=== PATIENT | female | born 1990 | race African-American/Black ===

== ENCOUNTER 2019-06-28 13:00 | Inpatient (IN) | payer OTHER ==
[2019-07-04] MEDS ORDERED: CITRIC ACID/SODIUM CITRATE 30 ML UNIT-DOSE CUP PO ONE (06:30)
[2019-07-04] MEDS ORDERED: ELECTROLYTE-148 SOLN 500 ML IV ONE (06:30)
[2019-07-04] MEDS ORDERED: ELECTROLYTE-148 SOLN 1,000 ML IV SCH (07:00)
[2019-07-04 07:04] VITALS: BMI 29.2
[2019-07-04] MEDS ORDERED: ONDANSETRON 4 MG/2 ML VIAL IVPUSH PRN (07:25)
[2019-07-04] MEDS ORDERED: morphine SULFATE/PF 0.5 MG/ML (2cc Syringe - QUVA) ONE (07:44)
[2019-07-04] MEDS ORDERED: ePHEDrine SULFATE 50 MG/1 ML AMPULE ONE (07:44)
[2019-07-04] MEDS ORDERED: PROPOFOL 20 ML ONE (07:44)
[2019-07-04] MEDS ORDERED: OXYTOCIN 20 UNITS in 0.9% NS 40 UNIT/2,000 ML INFUS.BAG IV ONE (07:52)
[2019-07-04] MEDS ORDERED: METHYLERGONOVINE MALEATE 0.2 MG/1 ML AMP IM PRN (09:30)
[2019-07-04] MEDS: OXYTOCIN 20 UNITS in 0.9% NS 20 UNIT/1,000 ML INFUS.BAG IV SCH (09:30)
--- NOTE | 2019-07-04 09:36 | HP ---
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: No: Alzheimer's, CVA, Dementia, Migraine, Multiple Sclerosis, Peripheral Neuropathy, Parkinson's, Seizure, Syncope, TIA, Vertigo, Other Cardiovascular: No: AFIB, Aneurysm, Aortic Insufficiency, Aortic Stenosis, CAD, CHF, Deep Vein Thrombosis, HTN, Hyperlipdemia, DC, Mitral Insufficiency, Mitral Stenosis, Murmur, Pulmonary Hypertension, Other Pulmonary: No: Asthma, Bronchitis, Cancer, COPD, O2 Dependent, Pneumonia, Previously Intubated, Pulmonary Embolus, Pulmonary Fibrosis, Sleep Apnea, Other Gastrointestinal: No: Ascites, Cancer, Constipation, Crohn's Disease, Diverticulitis, Diverticulosis, Esophageal Varices, Gastritis, GERD, GI Bleed, Hemorrhoids, Hiatal Hernia, Inflamatory Bowel Disease, Irritable Bowel Disease, Pancreatitis, Peptic Ulcer Disease, Ulcerative Colitis, Other Hepatobiliary: No: Cirrhosis, Cholelithiasis, Cholecystitis, Choledocholithiasis , Hepatitis A, Hepatitis B, Hepatitis C, Other Renal/: No: Renal Failure, Renal Inusuff, BPH, Cancer, Hematuria, Hemodialysis , Neurogenic Bladder, Renal Calculi, UTI, Other Reproductive: No: Ectopic , Endometriosis, Fibroids, PID, Polycystic Ovary Syndrome, Postmenopausal, Other ...: 4 ...Para: 1 ...Term: 1 ...: 0 ...Spon : 2 ...Induced : 0 ...Multiple Gestation: 0 ...LMP: 10/01/18 ...EDC by Sono: 07/09/19 Heme/Onc: No: Anemia, B12 Deficiency, Bleeding Disorder, Cancer, Current Chemotherapy, Current Radiation Therapy, Hemochromatosis, Hypercoaguable State, Myeloproliferative Synd, Sickle Cell Disease, Sickle Cell Trait, Thrombocytopenia, Other Infectious Disease: No: AIDS, C-Diff, Herpes Zoster, HIV, MRSA, STD's, Tuberculosis, VREF, Other Psych: No: Addictions, Anxiety, Bipolar, Depression, Panic, Psychosis, Schizophrenia, Other Musculoskeletal: No: Bursitis, Chronic low back pain, Hemiparesis, Hemiplegia, Osteoarthritis, Paraplegia, Other Rheumatology: No: Fibromyalgia, Gout, Lupus, Rheumatoid Arthritis, Sarcoidosis, Vasculitis, Other ENT: No: Allergic Rhinitis, Sinusitis, Other Endocrine: No: Bennington's Disease, Lima's Disease, Diabetes Insipidus, Diabetes Mellitus, Hyperparathyroidism, Hyperthyroidism, Hypothyroidism, Osteopenia, SIADH, Other Dermatology: No: Basal Cell, Cellulitis, Eczema, Melanoma, Psoriasis, Squamous Cell, Other - Past Surgical History Past Surgical History: Yes: Hx Myomectomy: No Hx Transabdominal Cerclage: No - Advance Directives Advance Directives: Yes: Living Will - Smoking History Smoking history: Never smoked Have you smoked in the past 12 months: No - Alcohol/Substance Use Hx Alcohol Use: No History of Substance Use: reports: None - Social History Usual Living Arrangement: Yes: With Significant Other Do you think of yourself as: Straight/Heterosexual ADL: Independent History of Recent Travel: No Home Medications - Allergies Allergies/Adverse Reactions: Allergies Allergy/AdvReac Type Severity Reaction Status Date / Time No Known Allergies Allergy Verified 07/04/19 06:41 - Home Medications Home Medications: Ambulatory Orders Mv-Mn/Iron/FA/Herbal/Digestive [ One Tablet] 1 each PO DAILY 07/04/19 Family Medical History Family History: Denies Review of Systems - Review of Systems Constitutional: reports: No Symptoms Eyes: reports: No Symptoms HENT: reports: No Symptoms Neck: reports: No Symptoms Cardiovascular: reports: No Symptoms Respiratory: reports: No Symptoms Gastrointestinal: reports: No Symptoms Genitourinary: reports: No Symptoms Breasts: reports: No Symptoms Reported Musculoskeletal: reports: No Symptoms Integumentary: reports: No Symptoms Neurological: reports: No Symptoms Endocrine: reports: No Symptoms Hematology/Lymphatic: reports: No Symptoms Psychiatric: reports: No Symptoms Physical Exam - Maternity Vital Signs: Vital Signs Temperature 98.0 F 07/04/19 06:59 Pulse Rate 82 07/04/19 06:59 Respiratory Rate 20 07/04/19 06:59 Blood Pressure 100/61 07/04/19 06:59 O2 Sat by Pulse Oximetry (%) Constitutional: Yes: Well Nourished, No Distress, Calm Eyes: Yes: WNL, Conjunctiva Clear, EOM Intact HENT: Yes: WNL, Atraumatic, Normocephalic Neck: Yes: WNL, Supple, Trachea Midline Cardiovascular: Yes: WNL, Regular Rate and Rhythm Lungs: Clear to auscultation Breast(s): Yes: WNL - Abdominal Exam/OB Fundal Height: 38 Number of Fetuses: Single Presentation: Vertex Contractions: Yes Regularity: Irregular Intensity: Mild Monitor Mode: External Heart Rate Location: [facility] Category: I Accelerations: Uniform Decelerations: None - Vaginal Exam/OB Vaginal Bleediing: No Speculum Exam: No Amniotic Membrane Status: Intact Presentation: Vertex/Position Station: -3 - Physical Exam Musculoskeletal: Yes: WNL Extremities: Yes: WNL Edema: Yes Edema: LUE: 1+, RUE: 1+, LLE: 1+, RLE: 1+ Integumentary: Yes: WNL Deep Tendon Reflex Grade: Normal +2 ...Motor Strength: WNL Psychiatric: Yes: WNL, Alert, Oriented Hemorrhage Risk Assessment - Risk Factors Medium Risk Factors: Yes: Prior , uterine surgery,or multiple laparotomies Risk Score: 1 Risk Level: Medium Risk Assessment/Plan for repeat lt c s
--- NOTE | 2019-07-04 09:38 | OP ---
Operative Note - Note: Operative Date: 07/04/19 Pre-Operative Diagnosis: repeat lt c s Operation: repeat lt c s Post-Operative Diagnosis: Same as Pre-op Surgeon: Benja Rodriguez Assembler Small Products: Sheldon Wheatley Anesthesiologist/FINE ARTIST: Spencer Smith Anesthesia: Spinal Estimated Blood Loss (mls): 500 (no complications ) Operative Report Dictated: Yes
[2019-07-04] MEDS: IBUPROFEN 800 MG/8 ML IJ IVPB PRN (15:00)
[2019-07-05] MEDS: OXYTOCIN 20 UNITS in 0.9% NS 20 UNIT/1,000 ML INFUS.BAG IV SCH (03:00)
[2019-07-05] MEDS: IBUPROFEN 800 MG/8 ML IJ IVPB PRN (04:45)
[2019-07-05 08:34] LABS: BASO % 0.1 % (0-2.0); EOS % 0.5 % (0-4.5); HEMATOCRIT 33.9 % (32.4-45.2); HEMOGLOBIN 11.1 GM/dL (10.7-15.3); LYMPH % 7.7 % (8-40); MCH 27.9 pg (25.7-33.7); MCHC 32.8 g/dl (32.0-36.0); MEAN CELL VOLUME 85.2 fl (80-96); MEAN PLT VOLUME 8.7 fl (7.5-11.1); MONO % 9.2 % (3.8-10.2); NEUT % 82.5 % (42.8-82.8); PLATELET COUNT 198 K/MM3 (134-434); RBC 3.98 M/mm3 (3.60-5.2); RDW 14.2 % (11.6-15.6); WHITE BLOOD COUNT 11.8 K/mm3 (4.0-10.0)
[2019-07-05] MEDS ORDERED: BISACODYL 10 MG SUPP.RECT RC PRN (09:31)
[2019-07-05] MEDS: ENOXAPARIN NA (PORCINE) 40 MG/0.4 ML DISP.SYRIN SQ SCH (10:52)
--- NOTE | 2019-07-05 14:09 | PN ---
Progress Note (short form) - Note Progress Note: Anesthesia Post op/Pain Pt seen and examined S:alert and awake O: Vital Signs Temperature 98.9 F 07/05/19 10:00 Pulse Rate 89 07/05/19 10:00 Respiratory Rate 20 07/05/19 10:00 Blood Pressure 100/49 L 07/05/19 10:00 O2 Sat by Pulse Oximetry (%) 100 07/04/19 10:19 CBC, BMP 07/05/19 08:05 A/P: s/p c section Doing well post op. comfortable Continue current care Marvin Varma
--- NOTE | 2019-07-05 14:26 | PN ---
Post Progress Note Post Day: 1 Type of Delivery: Repeat C/S Vital Signs: Vital Signs Temperature 98.9 F 07/05/19 10:00 Pulse Rate 89 07/05/19 10:00 Respiratory Rate 20 07/05/19 10:00 Blood Pressure 100/49 L 07/05/19 10:00 O2 Sat by Pulse Oximetry (%) 100 07/04/19 10:19 Breast Exam: Yes: Soft Uterus: Yes: Fundus Firm, Fundus below umbilicus Incision: Yes: Dressing dry and intact, Sutures intact Abdomen/GI: Yes: Abdomen soft, Passing flatus, Tolerating PO Lochia: Yes: Serosa Lochia, amount: Small Extremities: Yes: Calves non-tender Perineum: Yes: Intact Activity: Ambulating - Labs Labs: CBC WBC 11.8 K/mm3 (4.0-10.0) H 07/05/19 08:05 RBC 3.98 M/mm3 (3.60-5.2) 07/05/19 08:05 Hgb 11.1 GM/dL (10.7-15.3) 07/05/19 08:05 Hct 33.9 % (32.4-45.2) 07/05/19 08:05 MCV 85.2 fl (80-96) 07/05/19 08:05 MCH 27.9 pg (25.7-33.7) 07/05/19 08:05 MCHC 32.8 g/dl (32.0-36.0) 07/05/19 08:05 RDW 14.2 % (11.6-15.6) 07/05/19 08:05 Plt Count 198 K/MM3 (134-434) 07/05/19 08:05 MPV 8.7 fl (7.5-11.1) 07/05/19 08:05 Absolute Neuts (auto) 9.7 K/mm3 (1.5-8.0) H 07/05/19 08:05 Neutrophils % 82.5 % (42.8-82.8) 07/05/19 08:05 Lymphocytes % 7.7 % (8-40) L 07/05/19 08:05 Monocytes % 9.2 % (3.8-10.2) 07/05/19 08:05 Eosinophils % 0.5 % (0-4.5) 07/05/19 08:05 Basophils % 0.1 % (0-2.0) 07/05/19 08:05 Nucleated RBC % 0 % (0-0) 07/05/19 08:05 Other Findings, Remarks: doing well, dc ivf, regular diet
[2019-07-05] MEDS: SIMETHICONE 80 MG TAB.CHEW (FP) PO PRN ×2 (14:56→21:24)
[2019-07-05] MEDS: IBUPROFEN 600 MG TABLET (FP) PO PRN (14:56)
[2019-07-05] MEDS: ACETAMINOPHEN 325 MG TABLET (FP) PO PRN ×2 (14:57→21:24)
--- NOTE | 2019-07-05 19:36 | DS ---
Physical Exam-MOBILE DEVELOPER Vital Signs: Vital Signs Temperature 98.9 F 07/05/19 10:00 Pulse Rate 89 07/05/19 10:00 Respiratory Rate 07/05/19 10:00 Blood Pressure 100/49 L 07/05/19 10:00 O2 Sat by Pulse Oximetry (%) 100 07/04/19 10:19 Constitutional: Yes: Well Nourished, No Distress, Calm Eyes: Yes: WNL, Conjunctiva Clear, EOM Intact HENT: Yes: WNL, Atraumatic, Normocephalic Neck: Yes: WNL, Supple, Trachea Midline Cardiovascular: Yes: WNL, Regular Rate and Rhythm Respiratory: Yes: WNL, Regular, CTA Bilaterally Gastrointestinal: Yes: WNL, Normal Bowel Sounds, Soft ...Rectal Exam: Yes: WNL Renal/: Yes: WNL Pelvis: Yes: WNL External Genitalia: Yes: Normal Internal Exam Deferred: No Vaginal Exam: Yes: Normal Cervix: Yes: Normal Uterus: Yes: Normal Adnexa: Normal: Bilateral ....Post : Yes: Uterus firm, Uterus non-tender Breast(s): Yes: WNL Musculoskeletal: Yes: WNL Extremities: Yes: WNL Edema: Yes Edema: LUE: 1+, RUE: 1+, LLE: 1+, RLE: 1+ Integumentary: Yes: WNL Wound/Incision: Yes: Clean/Dry, Well Approximated Neurological: Yes: WNL, Alert, Oriented ...Motor Strength: WNL Psychiatric: Yes: WNL, Alert, Oriented Labs: CBC, BMP 07/05/19 08:05 Delivery - Delivery Type of Anesthesia: Spinal Episiotomy/Laceration: None EBL (cc): 500 Delivery, Single - Stages of Labor Date of Delivery: 07/04/19 Time of Delivery: 08:37 Time Placenta Delivered: 08:38 - 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 Programmer Present: Yes Name: Fidelia Harmon Infant Gender: Male Weight: 2.977 kg Position: Left, OA Total Hours ROM (Hrs/Mins): 0/2 - 1 Minute Total Score: 9 5 Minutes Total Score: 9 - Feeding Plan Initial Plan: Elected not to breastfeed exclusively throughout hospitalization Discharge Summary Problems reviewed: Yes Reason For Visit: ADMIT- C/S Procedures: Principal: repeat lt c s Other Procedures: none Hospital Course: uneventful Health Concerns: none Plan of Treatment: oob as much as possible Condition: Good - Instructions Diet, Activity, Other Instructions: Physical activity Resume your normal everyday activity as tolerated no heavy lifting or exercise until seen by your surgeon. You may walk unlimited [place] of and climb stairs. You may resume driving the car when you feel safe and comfortable behind the wheel. No sexual activity as instructed. Wound care If you have a bandage, leave it on, and keep dry for 48-72 hours. After that time discard the outer bandage. If they are tapes on the skin under the out of bandage leave them in place. They will peel off in the next 7 to 10 days. Do Not Peel them off. You may shower the day after surgery. If there are tapes present on the skin, you may shower over them. Diet There are no dietary restrictions. Eat healthy, high-fiber foods. Drink 6 to 8 glasses of liquid each day. This will assist in keeping your bowels are regular. Pain management You may take Tylenol or acetaminophen or Ibuprofen (for example, Motrin, Advil etc.) from my pain prescription medication is ordered should be taken as prescribed for moderate to severe pain. Call MD for any of the following: call dr torres for 2 weeks appointment Severe pain not relieved by medication Fever of 101 or higher Excessive bleeding or drainage on dressing Inability to urinate Referrals: Joshua Massey MD [Primary Care Provider] - - Home Medications Comprehensive Discharge Medication List: Ambulatory Orders Mv-Mn/Iron/FA/Herbal/Digestive [ One Tablet] 1 each PO DAILY 07/04/19 Prescription Drug Monitoring Program (I-STOP) results: I-STOP reviewed and no issues identified
[2019-07-05] MEDS: SENNOSIDES/DOCUSATE COMBO (SENNA PLUS) TABLET (UD) PO PRN (21:24)
[2019-07-05] MEDS: oxyCODONE HCL 5 MG TABLET PO PRN (21:24)
--- NOTE | 2019-07-05 23:21 | OP ---
DATE OF OPERATION: 07/04/2019 PREOPERATIVE DIAGNOSIS: Repeat low transverse section. POSTOPERATIVE DIAGNOSIS: Repeat low transverse section. PROCEDURE: Repeat low transverse section. SURGEON: Benja Nagel MD. AVIONICS SYSTEMS REPAIRER: BENY Henry. ANESTHESIA: Spinal ANESTHESIOLOGIST: Spencer Smith MD. INDICATION: This is a 28-year-old female patient, previous low transverse section, 39 weeks , is taken to the OR for repeat low transverse section. DESCRIPTION OF PROCEDURE: Patient was placed on operating table in supine position after spinal anesthesia was obtained. The patient's abdomen and pelvis were prepped and draped in the usual sterile manner. Pfannenstiel incision was made. The incision was made through skin, subcutaneous tissue, until the fascia was nicked in the midline. The fascia was extended bilaterally. Intraperitoneal cavity was entered, bladder flap was now created. Low transverse section was entered, baby delivered from LOT position. Baby was handed over to the crew foreman after umbilical cord was doubly clamped and cut. Cord blood gas was obtained. Placenta was removed. Uterus was closed in single layer, first layer interlocking Vicryl suture, good hemostasis, and both gutters clean. Both ovaries, fallopian tubes, uterus were within normal limits, no complications. Tolerated procedure well. Draining clear urine. Blood loss about 500 mL. Peritoneum was closed. Fascia was closed. Skin was closed with subcuticular suture. Transferred to recovery room in stable condition. BENJA NAGEL MD [id number]
[2019-07-06] MEDS: ACETAMINOPHEN 325 MG TABLET (FP) PO PRN ×4 (02:07→22:20)
[2019-07-06] MEDS: SIMETHICONE 80 MG TAB.CHEW (FP) PO PRN ×4 (02:07→22:20)
[2019-07-06] MEDS: oxyCODONE HCL 5 MG TABLET PO PRN ×3 (02:08→22:20)
[2019-07-06] MEDS: IBUPROFEN 600 MG TABLET (FP) PO PRN ×3 (03:24→17:21)
--- NOTE | 2019-07-06 08:36 | PN ---
Post Progress Note - Subjective Subjective: POD # 2. Doing well. Happy. Flatus pos. Type of Delivery: Repeat C/S Vital Signs: Vital Signs Temperature 98.6 F 07/05/19 22:00 Pulse Rate 88 07/05/19 22:00 Respiratory Rate 18 07/05/19 22:00 Blood Pressure 109/59 L 07/05/19 22:00 O2 Sat by Pulse Oximetry (%) 100 07/04/19 10:19 Breast Exam: Yes: Soft Uterus: Yes: Fundus Firm Incision: Yes: Dressing dry and intact (dressing removed. Incision clean and dry.) Abdomen/GI: Yes: Abdomen soft, Passing flatus, Tolerating PO Lochia: Yes: Serosa Lochia, amount: Small Extremities: Yes: Calves non-tender Activity: Ambulating - Labs Labs: CBC WBC 11.8 K/mm3 (4.0-10.0) H 07/05/19 08:05 RBC 3.98 M/mm3 (3.60-5.2) 07/05/19 08:05 Hgb 11.1 GM/dL (10.7-15.3) 07/05/19 08:05 Hct 33.9 % (32.4-45.2) 07/05/19 08:05 MCV 85.2 fl (80-96) 07/05/19 08:05 MCH 27.9 pg (25.7-33.7) 07/05/19 08:05 MCHC 32.8 g/dl (32.0-36.0) 07/05/19 08:05 RDW 14.2 % (11.6-15.6) 07/05/19 08:05 Plt Count 198 K/MM3 (134-434) 07/05/19 08:05 MPV 8.7 fl (7.5-11.1) 07/05/19 08:05 Absolute Neuts (auto) 9.7 K/mm3 (1.5-8.0) H 07/05/19 08:05 Neutrophils % 82.5 % (42.8-82.8) 07/05/19 08:05 Lymphocytes % 7.7 % (8-40) L 07/05/19 08:05 Monocytes % 9.2 % (3.8-10.2) 07/05/19 08:05 Eosinophils % 0.5 % (0-4.5) 07/05/19 08:05 Basophils % 0.1 % (0-2.0) 07/05/19 08:05 Nucleated RBC % 0 % (0-0) 07/05/19 08:05 Assessment/Plan I: recovering from c/section. No problems. Healing well. P: shower today. Regular diet. Discharge tomorrow. Instructions given.
[2019-07-06] MEDS: ENOXAPARIN NA (PORCINE) 40 MG/0.4 ML DISP.SYRIN SQ SCH (09:37)
[2019-07-06] MEDS: SENNOSIDES/DOCUSATE COMBO (SENNA PLUS) TABLET (UD) PO PRN (22:15)
[2019-07-07] MEDS: oxyCODONE HCL 5 MG TABLET PO PRN ×2 (02:20→08:27)
[2019-07-07] MEDS: SIMETHICONE 80 MG TAB.CHEW (FP) PO PRN ×3 (02:20→13:03)
[2019-07-07] MEDS: ACETAMINOPHEN 325 MG TABLET (FP) PO PRN ×3 (02:21→13:04)
[2019-07-07] MEDS: ENOXAPARIN NA (PORCINE) 40 MG/0.4 ML DISP.SYRIN SQ SCH (09:16)
[2019-07-07 12:23] VITALS: BP 111/60; PULSE 100; TEMP 98.3
[2019-07-07] MEDS: IBUPROFEN 600 MG TABLET (FP) PO PRN (13:04)
--- NOTE | 2019-07-08 15:58 | PATH ---
Surgical Pathology Report Patient Name: ANGELLA STEIN [facility]. Rec. 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 Electronically Signed Katya Mason M.D. Gross Description The specimen is received fresh labeled placenta and is a 521 gram, 18.5 x 17.0 x 2.6 cm. placenta with attached membranes and umbilical cord. The attached membranes are montemayor, translucent with focal opacities and insert marginally. The umbilical cord measures 44 cm. in length and averages 1.1 cm. in diameter. The cord inserts eccentrically, 5.5 cm. to the nearest margin. No true knots or strictures are identified. Cut surface of the umbilical cord reveals 3 vessels. The surface is kim-blue with minimal fibrin deposition and appropriate caliber vessels. The maternal surface is red-brown with focal defects. Sectioning reveals red-brown, spongy parenchyma. No lesions are identified. Outdoor Pursuits Instructor sections are submitted in three cassettes as follows: 1- membrane rolls and umbilical cord; 2-3- full thickness sections of placenta. 07/05/[address] [facility]07/05/2019
== END 2019-07-07 13:30 | disposition home or self-care (01) | DRG 540 ==
LOC: JLDR 07-04 06:10 → J3W 07-04 11:00
PROVIDERS: ADMIT Obstetrics & Gynecology; ATTEND Obstetrics & Gynecology
PROC: 10D00Z1 Extraction of Products of Conception, Low, Open Approach (ICD-10-PCS; principal; 2019-07-04)
DX: O34.219 Maternal care for unspecified type scar from previous cesarean delivery (principal); Z3A.39 39 weeks gestation of pregnancy; Z37.0 Single live birth
CPT/HCPCS: 36415; 85025; 88307-TC